=== PATIENT | female | born 1960 | race Caucasian/White ===

== ENCOUNTER 2017-07-07 07:22 | Emergency (ER) | payer OTHER ==
[~2017-07-07] VITALS: Ht 154.9 cm; Wt 92.1 kg
[2017-07-07 08:00] LABS: BASOPHIL % 0.4 % (0-2); PLATELET COUNT 254 x10^3mcL (130-400); RED CELL DISTRIBUTION WIDTH 14.2 % (11.5-14.5)
[2017-07-07 08:08] LABS: CALCIUM 9.3 mg/dL (8.5-10.1); CARBON DIOXIDE 24.9 mmol/L (21-32); CHLORIDE SERUM 103 mmol/L (98-107); CREATININE SERUM 0.9 mg/dL (0.6-1.0); GFR1 > 60 mL/min; GLUCOSE SERUM 201 mg/dL (74-106); POTASSIUM SERUM 3.8 mmol/L (3.5-5.1); SODIUM SERUM 136 mmol/L (136-145)
[2017-07-07 08:15] LABS: ALBUMIN 3.7 g/dL (3.4-5.0); ALKALINE PHOSPHATASE 108 U/L (46-116); ALT/SGPT 44 U/L (14-59); AST/SGOT 19 U/L (15-37); BILIRUBIN TOTAL 0.6 mg/dL (0.20-1.00); TOTAL PROTEIN, SERUM 7.9 g/dL (6.4-8.2)
[2017-07-07 08:33] VITALS: BP 130/73
== END 2017-07-07 08:58 | disposition home or self-care (01) ==
LOC: ED 07:22
PROVIDERS: Emergency Medicine
DX: J45.901 Unspecified asthma with (acute) exacerbation (principal); E11.9 Type 2 diabetes mellitus without complications; I10 Essential (primary) hypertension
CPT/HCPCS: 36415; J1885; J7613; J7644; Q0092

== ENCOUNTER 2019-04-04 20:05 | Emergency (ER) | payer MEDICAID ==
[~2019-04-04] VITALS: Ht 149.9 cm; Wt 85.3 kg
[2019-04-04 20:22] VITALS: Ht 149.9 cm; Wt 85.3 kg
[2019-04-04 23:29] VITALS: BP 155/71
== END 2019-04-04 23:29 | disposition home or self-care (01) ==
LOC: ED 20:05
DX: G89.29 Other chronic pain (principal); M25.562 Pain in left knee; M25.561 Pain in right knee; I10 Essential (primary) hypertension; E11.9 Type 2 diabetes mellitus without complications; J45.909 Unspecified asthma, uncomplicated
CPT/HCPCS: Q0162

== ENCOUNTER 2019-10-12 03:04 | Emergency (ER) | payer MEDICAID ==
[~2019-10-12] VITALS: Ht 149.9 cm; Wt 85.4 kg
[2019-10-12 03:07] VITALS: Ht 149.9 cm; Wt 85.4 kg
[2019-10-12 04:32] LABS: BASOPHIL % 0.5 % (0-2); PLATELET COUNT 251 x10^3mcL (130-400); RED CELL DISTRIBUTION WIDTH 14.3 % (11.5-14.5)
[2019-10-12 04:37] LABS: CALCIUM 8.9 mg/dL (8.5-10.1); CARBON DIOXIDE 24.4 mmol/L (21-32); CHLORIDE SERUM 109 mmol/L (98-107); CREATININE SERUM 0.8 mg/dL (0.6-1.0); GFR1 > 60 mL/min; GLUCOSE SERUM 162 mg/dL (74-106); POTASSIUM SERUM 3.5 mmol/L (3.5-5.1); SODIUM SERUM 143 mmol/L (136-145)
[2019-10-12 04:41] LABS: ALBUMIN 3.5 g/dL (3.4-5.0); ALKALINE PHOSPHATASE 124 U/L (46-116); ALT/SGPT 41 U/L (14-59); AST/SGOT 24 U/L (15-37); BILIRUBIN TOTAL 0.55 mg/dL (0.20-1.00); LIPASE 134 IU/L (73-393); TOTAL PROTEIN, SERUM 7.7 g/dL (6.4-8.2)
[2019-10-12 06:31] LABS: microscopic required? NO
[2019-10-12 06:43] LABS: urine erythrocyte NEGATIVE (NEGATIVE)
[2019-10-12 08:12] VITALS: BP 120/62
== END 2019-10-12 08:12 | disposition home or self-care (01) ==
LOC: ED 03:04
PROVIDERS: Emergency Medicine
DX: R07.89 Other chest pain (principal); R10.811 Right upper quadrant abdominal tenderness; J45.909 Unspecified asthma, uncomplicated; I10 Essential (primary) hypertension; E11.9 Type 2 diabetes mellitus without complications
CPT/HCPCS: 36415; Q0092

== ENCOUNTER 2020-03-13 23:24 | Emergency (ER) | payer OTHER, SELFPAY ==
[~2020-03-13] VITALS: Ht 149.9 cm; Wt 90.7 kg
[2020-03-13 23:28] VITALS: Ht 149.9 cm; Wt 90.7 kg
[2020-03-14 00:29] VITALS: BP 134/81
== END 2020-03-14 00:29 | disposition home or self-care (01) ==
LOC: ED 23:24
DX: B34.9 Viral infection, unspecified (principal); J45.909 Unspecified asthma, uncomplicated; I10 Essential (primary) hypertension; E11.9 Type 2 diabetes mellitus without complications; Z20.828 Contact with and (suspected) exposure to other viral communicable diseases
CPT/HCPCS: U0003-CS